=== PATIENT | male | born 1930 | race Caucasian/White ===

== ENCOUNTER 2016-10-07 09:39 | Inpatient (IN) | payer MEDICARE, BC ==
[2016-10-07] MEDS ORDERED: Sodium Chloride 0.9% 10 ML Syringe FLUSH PRN (09:57)
--- NOTE | 2016-10-07 10:03 | EDM.PDOC ---
ED HPI GENERAL MEDICAL PROBLEM - General Chief Complaint: General Stated Complaint: [facility] Time Seen by Provider: 10/07/16 09:47 Source of Information: Reports: Patient, Group Home Records History Limitations: Reports: No Limitations - History of Present Illness INITIAL COMMENTS - FREE TEXT/NARRATIVE: The patient presents from [facility]. This morning he was being helped out of bed and he became weak and they helped him to the floor. He did not fall and he did not hurt anything. They checked his vital signs and his oxygen saturations were very low in the 70s. He was put on a nonrebreather and sent to the ER. He has no fever or chills but he has been coughing. He has been coughing up some whitish sputum. He denies chest pain and he says he does not feel short of breath. He does not use oxygen at the residential. He has no abdominal pain, nausea or vomiting. He has no dysuria. Onset: Today Duration: Hour(s): Severity: Moderate Improves with: Reports: None Worsens with: Reports: Movement Context: Reports: Other (He was getting out of bed when this started) Associated Symptoms: Reports: Cough, cough w sputum. Denies: Confusion, Chest Pain, Fever/Chills, Nausea/Vomiting, Shortness of Breath - Related Data Allergies Allergy/AdvReac Type Severity Reaction Status Date / Time No Known Allergies Allergy Verified 10/07/16 09:52 Home Meds: Home Meds Finasteride [Proscar] 5 mg PO PCLUNCH 05/11/14 [History] Potassium Chloride 20 meq PO BID 05/11/14 [History] Polyethylene Glycol 3350 [MiraLAX] 17 gm PO ASDIRECTED PRN 03/08/15 [History] Sennosides/Docusate Sodium [Senna-Docusate Sodium] 1 each PO BEDTIME 03/08/15 [ History] Sertraline [Zoloft] 50 mg PO DAILY 03/08/15 [History] Cholecalciferol (Vitamin D3) [Vitamin D3] 1,000 units PO PCLUNCH 09/08/15 [ History] Warfarin [Coumadin] 7.5 mg PO SUMOTUWETHSA 09/08/15 [History] atorvaSTATin [Lipitor] 40 mg PO BEDTIME 09/08/15 [History] Acetaminophen [Tylenol] 325 mg PO Q4H PRN 09/13/16 [History] Cyanocobalamin (Vitamin B-12) [B-12] 1,000 mcg PO DAILY 09/13/16 [History] Furosemide [Lasix] 60 mg PO DAILY 09/13/16 [History] Timolol Maleate [Timoptic 0.25% Ophth Soln] 5 ml EYEBOTH DAILY 09/13/16 [History ] Warfarin [Coumadin] 10 mg PO FR 09/13/16 [History] guaiFENesin [Guaifenesin ER] 600 mg PO Q12H PRN 09/13/16 [History] Past Medical History HEENT History: Reports: Glaucoma Other HEENT History: Glasses (at home) Cardiovascular History: Reports: Afib, High Cholesterol, Hypertension Other Genitourinary History: Frequency of urination, dribbling occassionally Other Musculoskeletal History: Right hip Neurological History: Reports: Other (See Below) Other Neuro History: Daughter states advanced dementia. Psychiatric History: Reports: Dementia Endocrine/Metabolic History: Reports: Obesity/BMI 30+ Other Endocrine/Metabolic History: 3 - Infectious Disease History Infectious Disease History: Reports: None - Past Surgical History Cardiovascular Surgical History: Reports: Other (See Below) Musculoskeletal Surgical History: Reports: Hip Replacement Social & Family History - Family History Family Medical History: Noncontributory Cardiac: Reports: [place] Oncologic: Reports: Other (See Below) Other Oncologic Family History: Stomach CA - Tobacco Use Smoking Status *Q: Former Smoker Years of Tobacco use: 20 Packs/Tins Daily: 1 Used Tobacco, but Quit: Yes Month Tobacco Last Used: 15 years Second Hand Smoke Exposure: No - Caffeine Use Caffeine Use: Reports: None - Alcohol Use Days Per Week of Alcohol Use: 0 - Recreational Drug Use Recreational Drug Use: No ED ROS GENERAL - Review of Systems Review Of Systems: See Below Constitutional: Reports: No Symptoms HEENT: Reports: No Symptoms Respiratory: Reports: Cough, Sputum. Denies: Shortness of Breath Cardiovascular: Reports: No Symptoms Endocrine: Reports: No Symptoms GI/Abdominal: Reports: No Symptoms : Reports: No Symptoms Musculoskeletal: Reports: No Symptoms Skin: Reports: No Symptoms ED EXAM, GENERAL - Physical Exam Exam: See Below Exam Limited By: No Limitations General Appearance: Alert, No Apparent Distress Ears: Normal External Exam Nose: Normal Inspection Head: Atraumatic, Normocephalic Neck: Normal Inspection Respiratory/Chest: No Respiratory Distress, Decreased Breath Sounds Cardiovascular: Regular Rate, Rhythm, No Edema, No Murmur GI/Abdominal: Soft, Non-Tender, No Organomegaly, No Mass Back Exam: Normal Inspection Extremities: Normal Inspection Course - Vital Signs Last Recorded V/S: Last Vital Signs Temp 97.6 F 10/07/16 09:45 Pulse 84 10/07/16 09:45 Resp 23 H 10/07/16 09:45 BP 122/59 L 10/07/16 09:45 Pulse Ox 100 10/07/16 09:45 - Orders/Labs/Meds Orders: Active Orders 24 hr Category Date Time Status Cardiac Monitoring [RC] . DIRECTED Care 10/07/16 09:57 Active EKG Documentation Completion [RC] STAT Care 10/07/16 09:58 Active Oxygen Therapy [RC] PRN Care 10/07/16 09:57 Active Peripheral IV Care [RC] . DIRECTED Care 10/07/16 09:58 Active Chest 1V Frontal [CR] Stat Exams 10/07/16 09:58 Taken CBC WITH MANUAL DIFF [HEME] Stat Lab 10/07/16 09:53 Results CULTURE BLOOD [BC] Stat Lab 10/07/16 10:34 Received CULTURE BLOOD [BC] Stat Lab 10/07/16 10:50 Received Hemoccult [OCCULT BLOOD DIAGNOSTIC] [OP] Stat Lab 10/07/16 11:24 Uncollected RED BLOOD CELLS LP [BBK] Stat Lab 10/07/16 10:21 Ordered TYPE AND SCREEN [BBK] Stat Lab 10/07/16 10:21 Ordered Sodium Chloride 0.9% [Normal Saline] 1,000 ml Med 10/07/16 11:15 Active IV ASDIRECTED Sodium Chloride 0.9% [Saline Flush] Med 10/07/16 09:57 Active 10 ml FLUSH ASDIRECTED PRN Blood Culture x2 Reflex Set [OM.PC] Stat Oth 10/07/16 09:58 Ordered Peripheral IV Insertion Adult [OM.PC] Stat Oth 10/07/16 09:57 Ordered Transfuse Red Blood Cells [COMM] Stat Oth 10/07/16 10:21 Ordered Medication Orders Sodium Chloride (Normal Saline) 1,000 mls @ 75 mls/hr IV ASDIRECTED SAM Sodium Chloride (Saline Flush) 10 ml FLUSH ASDIRECTED PRN PRN Reason: Keep Vein Open Labs: Laboratory Tests 10/07/16 10/07/16 10/07/16 Range/Units 09:53 09:53 09:53 WBC 4.89 (4.23-9.07) K/mm3 RBC 1.56 L (4.63-6.08) M/mm3 Hgb 5.1 L* (13.7-17.5) gm/L Hct 16.3 L (40.1-51.0) % MCV 104.5 H (79.0-92.2) fl MCH 32.7 H (25.7-32.2) pg MCHC 31.3 L (32.2-35.5) g/dl RDW Std Deviation 87.6 H (35.1-43.9) fL Plt Count 31 L (163-337) K/mm3 MPV 10.6 (9.4-12.3) fl Neut % (Auto) Cancelled Lymph % (Auto) Cancelled [place] % (Auto) Cancelled Eos % (Auto) Cancelled Baso % (Auto) Cancelled Neut # (Auto) Cancelled Lymph # (Auto) Cancelled [place] # (Auto) Cancelled Eos # (Auto) Cancelled Baso # (Auto) Cancelled Manual Slide Review Cancelled PT 19.6 H (8.0-13.0) SECONDS INR 1.74 Sodium 143 (136-145) mEq/L Potassium 5.0 (3.5-5.1) mEq/L Chloride 109 H (98-107) mEq/L Carbon Dioxide 25 (21-32) mEq/L Anion Gap 14.0 (5-15) BUN 38 H (7-18) mg/dL Creatinine 2.2 H (0.7-1.3) mg/dL Est Cr Clr Drug Dosing 24.43 mL/min Estimated GFR (MDRD) 28 (>60) mL/min BUN/Creatinine Ratio 17.3 (14-18) Glucose 120 H (83-115) mg/dL Calcium 8.7 (8.5-10.1) mg/dL Total Bilirubin 0.9 (0.2-1.0) mg/dL AST 16 (15-37) U/L ALT 17 (16-63) U/L Alkaline Phosphatase 78 (46-116) U/L Troponin I 0.055 (0.00-0.056) ng/mL B-Natriuretic Peptide (0-100) pg/mL Total Protein 7.3 (6.4-8.2) g/dl Albumin 3.1 L (3.4-5.0) g/dl Globulin 4.2 gm/dL Albumin/Globulin Ratio 0.7 L (1-2) 10/07/16 Range/Units 09:53 WBC (4.23-9.07) K/mm3 RBC (4.63-6.08) M/mm3 Hgb (13.7-17.5) gm/L Hct (40.1-51.0) % MCV (79.0-92.2) fl MCH (25.7-32.2) pg MCHC (32.2-35.5) g/dl RDW Std Deviation (35.1-43.9) fL Plt Count (163-337) K/mm3 MPV (9.4-12.3) fl Neut % (Auto) Lymph % (Auto) [place] % (Auto) Eos % (Auto) Baso % (Auto) Neut # (Auto) Lymph # (Auto) [place] # (Auto) Eos # (Auto) Baso # (Auto) Manual Slide Review PT (8.0-13.0) SECONDS INR Sodium (136-145) mEq/L Potassium (3.5-5.1) mEq/L Chloride (98-107) mEq/L Carbon Dioxide (21-32) mEq/L Anion Gap (5-15) BUN (7-18) mg/dL Creatinine (0.7-1.3) mg/dL Est Cr Clr Drug Dosing mL/min Estimated GFR (MDRD) (>60) mL/min BUN/Creatinine Ratio (14-18) Glucose (83-115) mg/dL Calcium (8.5-10.1) mg/dL Total Bilirubin (0.2-1.0) mg/dL AST (15-37) U/L ALT (16-63) U/L Alkaline Phosphatase (46-116) U/L Troponin I (0.00-0.056) ng/mL B-Natriuretic Peptide 278 H (0-100) pg/mL Total Protein (6.4-8.2) g/dl Albumin (3.4-5.0) g/dl Globulin gm/dL Albumin/Globulin Ratio (1-2) Meds: Medications Generic Name Dose Route Start Last Admin Trade Name Freq PRN Reason Stop Dose Admin Sodium Chloride 1,000 mls @ 75 mls/hr 10/07/16 11:15 Normal Saline IV ASDIRECTED SAM Sodium Chloride 10 ml 10/07/16 09:57 Saline Flush FLUSH ASDIRECTED PRN Keep Vein Open - Re-Assessments/Exams Free Text/Narrative Re-Assessment/Exam: 10/07/16 10:03 I have ordered an IV, oxygen, EKG, CXR, labs, and UA. 10/07/16 11:17 His EKG shows A-fib with a RBBB. His CXR shows poor inspiration and mild congestive changes. His WBC was negative. His Hgb was low at 5.1. His platelets were low at 31. His INR was at 1.74. His creatinine was elevated at 2.2. His troponin is negative. His BNP was a little elevated at 278. He has a history of anemia but it has never been this bad. I have ordered 2 units. I feel he needs to be admitted. I called Dr Barton and he agreed to the admission. 10/07/16 11:28 I did a stool guiac on him and it was negative for blood. Departure - Departure Time of Disposition: 11:30 Disposition: Admitted As Inpatient 65 Condition: fair Clinical Impression: Renal insufficiency, Hypoxemia Anemia Qualifiers: Anemia type: unspecified type Qualified Code(s): D64.9 - Anemia, unspecified - Discharge Information Referrals: René Cuba MD [Primary Care Provider] - Forms: ED Department Discharge - My Orders Last 24 Hours: My Active Orders 10/07/16 09:53 CBC WITH MANUAL DIFF [HEME] Stat 10/07/16 09:57 Cardiac Monitoring [RC] . DIRECTED Oxygen Therapy [RC] PRN Sodium Chloride 0.9% [Saline Flush] 10 ml FLUSH ASDIRECTED PRN Peripheral IV Insertion Adult [OM.PC] Stat 10/07/16 09:58 EKG Documentation Completion [RC] STAT Peripheral IV Care [RC] . DIRECTED Chest 1V Frontal [CR] Stat Blood Culture x2 Reflex Set [OM.PC] Stat 10/07/16 10:21 RED BLOOD CELLS LP [BBK] Stat TYPE AND SCREEN [BBK] Stat Transfuse Red Blood Cells [COMM] Stat 10/07/16 10:34 CULTURE BLOOD [BC] Stat 10/07/16 10:50 CULTURE BLOOD [BC] Stat 10/07/16 11:15 Sodium Chloride 0.9% [Normal Saline] 1,000 ml IV ASDIRECTED 10/07/16 11:24 Hemoccult [OCCULT BLOOD DIAGNOSTIC] [OP] Stat - Assessment/Plan Last 24 Hours: My Active Orders 10/07/16 09:53 CBC WITH MANUAL DIFF [HEME] Stat 10/07/16 09:57 Cardiac Monitoring [RC] . DIRECTED Oxygen Therapy [RC] PRN Sodium Chloride 0.9% [Saline Flush] 10 ml FLUSH ASDIRECTED PRN Peripheral IV Insertion Adult [OM.PC] Stat 10/07/16 09:58 EKG Documentation Completion [RC] STAT Peripheral IV Care [RC] . DIRECTED Chest 1V Frontal [CR] Stat Blood Culture x2 Reflex Set [OM.PC] Stat 10/07/16 10:21 RED BLOOD CELLS LP [BBK] Stat TYPE AND SCREEN [BBK] Stat Transfuse Red Blood Cells [COMM] Stat 10/07/16 10:34 CULTURE BLOOD [BC] Stat 10/07/16 10:50 CULTURE BLOOD [BC] Stat 10/07/16 11:15 Sodium Chloride 0.9% [Normal Saline] 1,000 ml IV ASDIRECTED 10/07/16 11:24 Hemoccult [OCCULT BLOOD DIAGNOSTIC] [OP] Stat
[2016-10-07] MEDS ORDERED: Sodium Chloride 0.9% 1,000 ML IV SCH (11:15)
--- NOTE | 2016-10-07 12:44 | PCM.HP ---
H&P History of Present Illness - General Date of Service: 10/07/16 Admit Problem/Dx: Admission Diagnosis/Problem Admission Diagnosis/Problem Anemia Source of Information: Patient, Old Records, Provider, RN Notes Reviewed History Limitations: Reports: Altered Mental Status - History of Present Illness Initial Comments - Free Text/Narative: This is an 86 yo elderly white male with past medical hx/o HTN, HLD, CVA, Hx/o Anemia, Hx/o Pancytopenia, GERD, AVR, Renal Insufficiency/CKD, Dysphagia, Atrial Fibrillation on Warfarin, BPH, Spinal Stenosis, Constipation, OA/DJD, Dry Eyes Syndrome and Depression who comes in from [facility] with complaints of generalized weakness and was found to have low O2 sat in the 70% on RA. No associated abdominal pain, nausea, vomiting or diarrhea. No black tarry or bloody stools. Patient is a poor historian and unable to provide much information. He admits to having cough with sputum but no shortness of breath or chest pain. His initial work up in ED shows a CBC remarkable for RBC of 1.56, Hgb of 5.1, Hct of 16.3, MCV of 104, and Platelet of 31. His INR is 1.74. His chemistry is significant for CL of 109, BUN of 38, Cr of 2.2, BS of 120, BNP of 278, and albumin of 3.1. His CXR shows increased lung markings. Patient was admitted for asymptomatic anemia. He is DNR/DNI. - Related Data Allergies/Adverse Reactions: Allergies Allergy/AdvReac Type Severity Reaction Status Date / Time No Known Allergies Allergy Verified 10/07/16 09:52 Home Medications: Home Meds Finasteride [Proscar] 5 mg PO PCLUNCH 05/11/14 [History] Potassium Chloride 20 meq PO BID 05/11/14 [History] Polyethylene Glycol 3350 [MiraLAX] 17 gm PO ASDIRECTED PRN 03/08/15 [History] Sennosides/Docusate Sodium [Senna-Docusate Sodium] 1 each PO BEDTIME 03/08/15 [ History] Sertraline [Zoloft] 50 mg PO DAILY 03/08/15 [History] Cholecalciferol (Vitamin D3) [Vitamin D3] 1,000 units PO PCLUNCH 09/08/15 [ History] Warfarin [Coumadin] 7.5 mg PO SUTUWETHSA 09/08/15 [History] atorvaSTATin [Lipitor] 40 mg PO BEDTIME 09/08/15 [History] Acetaminophen [Tylenol] 325 mg PO Q4H PRN 09/13/16 [History] Cyanocobalamin (Vitamin B-12) [B-12] 1,000 mcg PO DAILY 09/13/16 [History] Furosemide [Lasix] 60 mg PO DAILY 09/13/16 [History] Timolol Maleate [Timoptic 0.25% Ophth Soln] 5 ml EYEBOTH DAILY 09/13/16 [History ] Warfarin [Coumadin] 10 mg PO MOFR 09/13/16 [History] guaiFENesin [Guaifenesin ER] 600 mg PO Q12H PRN 09/13/16 [History] Past Medical History HEENT History: Reports: Glaucoma Other HEENT History: Glasses (at home) Cardiovascular History: Reports: Afib, High Cholesterol, Hypertension Other Genitourinary History: Frequency of urination, dribbling occassionally Other Musculoskeletal History: Right hip Neurological History: Reports: Other (See Below) Other Neuro History: Daughter states advanced dementia. Psychiatric History: Reports: Dementia Endocrine/Metabolic History: Reports: Obesity/BMI 30+ Other Endocrine/Metabolic History: 3 - Infectious Disease History Infectious Disease History: Reports: None - Past Surgical History Cardiovascular Surgical History: Reports: Other (See Below) Musculoskeletal Surgical History: Reports: Hip Replacement Social & Family History - Family History Family Medical History: Noncontributory Cardiac: Reports: [place] Oncologic: Reports: Other (See Below) Other Oncologic Family History: Stomach CA - Tobacco Use Smoking Status *Q: Former Smoker Years of Tobacco use: 20 Packs/Tins Daily: 1 Used Tobacco, but Quit: Yes Month Tobacco Last Used: 15 years Second Hand Smoke Exposure: No - Caffeine Use Caffeine Use: Reports: None - Alcohol Use Days Per Week of Alcohol Use: 0 - Recreational Drug Use Recreational Drug Use: No H&P Review of Systems - Review of Systems: Review Of Systems: See Below General: Reports: Weakness HEENT: Reports: No Symptoms Pulmonary: Reports: Cough, Sputum. Denies: Shortness of Breath Cardiovascular: Reports: Edema. Denies: Chest Pain, Palpitations, Dyspnea on Exertion Gastrointestinal: Denies: Abdominal Pain, Black Stool, Bloody Stool, Constipation, Diarrhea, Decreased Appetite, Hematemesis, Hematochezia, Mucous in Stool, Nausea, Vomiting Genitourinary: Reports: No Symptoms Musculoskeletal: Reports: No Symptoms Skin: Denies: Cyanosis Psychiatric: Denies: Confusion, Anxiety, Hallucinations, Hallucinations ( Auditory) Neurological: Reports: Difficulty Walking, Weakness, Gait Disturbance Hematologic/Lymphatic: Reports: Anemia, Easy Bleeding, Easy Bruising Immunologic: Reports: No Symptoms Exam - Exam Exam: See Below - Vital Signs Vital Signs: Last Vital Signs Temp 36.4 C 10/07/16 11:59 Pulse 76 10/07/16 12:25 Resp 23 H 10/07/16 12:25 BP 118/72 10/07/16 12:25 Pulse Ox 100 10/07/16 12:25 Weight: 117.934 kg - Exam General: Alert, Cooperative, Other (Obese). No: Mild Distress HEENT: Conjunctiva Clear, EACs Clear, Hearing Intact, Mucosa Moist & [place], Nares Patent, Normal Nasal Septum, Posterior Pharynx Clear, Pupils Equal, Pupils Reactive Neck: Supple, Trachea Midline. No: JVD Lungs: Normal Respiratory Effort, Decreased Breath Sounds Cardiovascular: Regular Rate, Regular Rhythm Abdomen: Normal Bowel Sounds, Soft. No: Organomegaly, Distention, Guarding, Rigidity, Tenderness (Male) Exam: Deferred Rectal (Males) Exam: Deferred Back Exam: Normal Inspection, Decreased Range of Motion Extremities: Normal Inspection, Normal Pulses, Edema Peripheral Pulses: 2+: Dorsalis Pedis (L), Dorsalis Pedis (R) Skin: Warm, Dry, Intact Neuro Extensive - Mental Status: Normal Cognition Neuro Extensive - Motor, Sensory, Reflexes: CN II-XII Intact (limited but fairly intact), Abnormal Gait Psychiatric: Alert, Normal Affect, Normal Mood - Patient Data Result Diagrams: 10/08/16 04:18 10/08/16 04:18 *Q Meaningful Use (ADM) - VTE *Q VTE Criteria *Q: - Stroke *Q Stroke Criteria *Q: - AMI *Q AMI Criteria *Q: Problem List Initiated/Reviewed/Updated: Yes Orders Last 24hrs: Medication Orders Sodium Chloride (Normal Saline) 1,000 mls @ 75 mls/hr IV ASDIRECTED SAM Last Admin: 10/07/16 11:39 Dose: 75 mls/hr Sodium Chloride (Saline Flush) 10 ml FLUSH ASDIRECTED PRN PRN Reason: Keep Vein Open Last Admin: 10/07/16 12:06 Dose: 10 ml Assessment/Plan Comment:: Assessment/Plan: Acute: Anemia - Has hx/o Microcytic Anemia and Pancytopenia (BM Failure/Blood Dyscrasia) - Risk factors: On Warfarin - Hem-occult test test in ED negative - Hold blood thinners - Current transfusing PRBCx x2 - Consulted Dr. Welsh for further eval Subtherapeutic INR - INR 1.74 - No need to give Vit K - Patient is not actively bleeding Pancytopenia/BM Failure - Had seen Dr. Hoyt before - He dit not meet criteria for BM biopsy or even or chemotherapy - He would likely need routine blood transfusion Chronic: HTN HLD Atrial Fibrillation BPH CKD Stage 4 Dementia Obesity Plan: Admit to the floor Routine AM Labs Resume Home Meds except blood thinners PT/OT consult Dr. Welsh consult SW/CM for d/c planning Fall Precautions Code status: DNR/DNI
[2016-10-07] MEDS ORDERED: Acetaminophen 325 MG Tab PO PRN (13:14)
[2016-10-07] MEDS ORDERED: guaiFENesin 600 MG Tab.ER PO PRN (13:14)
[2016-10-07] MEDS ORDERED: Polyethylene Glycol 3350 Powder 17 GM Packet PO PRN (13:14)
[2016-10-07] MEDS ORDERED: hydrALAZINE 20 MG/ML SDV IVPUSH PRN (13:16)
[2016-10-07] MEDS ORDERED: Metoprolol Tartrate 5 MG/5 ML SDV IVPUSH PRN (13:16)
[2016-10-07] MEDS ORDERED: Temazepam 7.5 MG Cap PO PRN (13:17)
[2016-10-07] MEDS ORDERED: Promethazine 12.5 MG in Sodium Chloride 0.9% 50 ML IV PRN (13:17)
[2016-10-07] MEDS ORDERED: Acetaminophen/HYDROcodone 325-5 MG Tab PO PRN (13:17)
[2016-10-07] MEDS ORDERED: Docusate Sodium 100 MG Cap PO PRN (13:17)
[2016-10-07] MEDS ORDERED: Albuterol/Ipratropium 3.0-0.5 MG/3 ML Neb Soln NEB PRN (13:17)
[2016-10-07] MEDS ORDERED: Ondansetron 4 MG/2 ML SDV IV PRN (13:17)
[2016-10-07] MEDS ORDERED: LORazepam 2 MG/ML MDV IV PRN (13:17)
[2016-10-07] MEDS ORDERED: Bumetanide 1 MG/4 ML MDV IVPUSH ONE (13:35)
[2016-10-07] MEDS: Finasteride 5 MG Tab PO SCH (14:13)
[2016-10-07] MEDS: Cholecalciferol (Vitamin D3) 1,000 Unit Tab PO SCH (14:13)
--- NOTE | 2016-10-07 18:02 | CR ---
Chest: Portable view of the chest was obtained. Comparison: Previous chest x-ray of 04/06/16. Heart is enlarged. Tortuous thoracic aorta is seen. Previous sternotomy noted. Increased central lung markings from prior exam. Findings may represent diffuse bronchitis versus pulmonary vascular congestion. No alveolar densities are seen. Bony structures are grossly intact. Impression: 1. Cardiomegaly. 2. Increased central lung markings either due to diffuse bronchitis or pulmonary vascular congestion. Diagnostic code #3
[2016-10-07] MEDS: Bumetanide 1 MG/4 ML MDV IVPUSH SCH (21:33)
[2016-10-07] MEDS: Potassium Chloride 10 MEQ Tab.ER PO SCH (21:35)
[2016-10-07] MEDS: Rosuvastatin 10 MG Tab PO SCH (21:35)
--- NOTE | 2016-10-08 09:00 | PCM.PN ---
- General Info Date of Service: 10/08/16 Admission Dx/Problem (Free Text): Admission Diagnosis/Problem Admission Diagnosis/Problem Anemia Subjective Update: Follow Up Functional Status: Reports: pain controlled, tolerating diet, urinating. Denies : new symptoms - Review of Systems General: Denies: Fever, Fatigue, Chills HEENT: Reports: no symptoms Pulmonary: Denies: shortness of breath Cardiovascular: Denies: Chest Pain, Palpitations, Dyspnea on Exertion Gastrointestinal: Denies: Abdominal pain, Nausea, Vomiting Genitourinary: Reports: no symptoms Musculoskeletal: Reports: no symptoms Skin: Denies: pallor Neurological: Reports: Difficulty Walking, Gait Disturbance. Denies: Dizziness , Weakness Psychiatric: Denies: depression, anxiety, agitation Systems Review Comment:: No overnight or acute issues. No any kind of bleeding reported. His Hgb today is 6.7 and Platelet is 22 from 31. - Patient Data Vitals - most recent: Last Vital Signs Temp 37.2 C 10/08/16 03:41 Pulse 85 10/08/16 03:41 Resp 28 H 10/08/16 03:41 BP 119/78 10/08/16 03:41 Pulse Ox 96 10/08/16 03:41 Weight - most recent: 114.986 kg I&O - last 24 hours: Intake & Output 10/07/16 10/08/16 10/08/16 22:59 06:59 14:59 Intake Total 775 120 Balance 775 120 Lab Results last 24 hrs: Laboratory Results - last 24 hr 10/07/16 10/08/16 10/08/16 Range/Units 21:23 04:18 04:18 WBC 5.04 (4.23-9.07) K/mm3 RBC 2.01 L (4.63-6.08) M/mm3 Hgb 6.7 L* (13.7-17.5) gm/L Hct 20.4 L (40.1-51.0) % MCV 101.5 H (79.0-92.2) fl MCH 33.3 H (25.7-32.2) pg MCHC 32.8 (32.2-35.5) g/dl RDW Std Deviation 73.7 H (35.1-43.9) fL Plt Count 22 L* (163-337) K/mm3 MPV 10.6 (9.4-12.3) fl Neut % (Auto) Cancelled Lymph % (Auto) Cancelled [place] % (Auto) Cancelled Eos % (Auto) Cancelled Baso % (Auto) Cancelled Neut # (Auto) Cancelled Lymph # (Auto) Cancelled [place] # (Auto) Cancelled Eos # (Auto) Cancelled Baso # (Auto) Cancelled Manual Slide Review Cancelled Sodium 143 (136-145) mEq/L Potassium 4.5 (3.5-5.1) mEq/L Chloride 109 H (98-107) mEq/L Carbon Dioxide 26 (21-32) mEq/L Anion Gap 12.5 (5-15) BUN 36 H (7-18) mg/dL Creatinine 2.0 H (0.7-1.3) mg/dL Est Cr Clr Drug Dosing 26.87 mL/min Estimated GFR (MDRD) 32 (>60) mL/min BUN/Creatinine Ratio 18.0 (14-18) Glucose 102 (83-115) mg/dL Calcium 8.3 L (8.5-10.1) mg/dL Magnesium 2.1 (1.8-2.4) mg/dl MRSA (PCR) Negative Med Orders - Current: Current Medications Acetaminophen (Tylenol) 325 mg PO Q4H PRN PRN Reason: Pain Hydrocodone Bitart/Acetaminophen ([place] 325-5 Mg) 1 tab PO Q4H PRN PRN Reason: Pain (moderate 4-6) Albuterol/Ipratropium (Duoneb 3.0-0.5 Mg/3 Ml) 3 ml NEB Q4H PRN PRN Reason: Shortness Of Breath/wheezing Bumetanide (Bumex) 0.5 mg IVPUSH BID [facility] Last Admin: 10/07/16 21:33 Dose: 0.5 mg Cholecalciferol (Vitamin D3) 1,000 units PO PCLUNCH [facility] Last Admin: 10/07/16 14:13 Dose: 1,000 units Cyanocobalamin (Vitamin B12) 1,000 mcg PO DAILY [facility] Docusate Sodium (Colace) 100 mg PO BID PRN PRN Reason: Constipation Finasteride (Proscar) 5 mg PO PCLUNCH [facility] Last Admin: 10/07/16 14:13 Dose: 5 mg Guaifenesin (Mucinex) 600 mg PO Q12H PRN PRN Reason: Cough Hydralazine HCl (Apresoline) 20 mg IVPUSH Q4H PRN PRN Reason: Hypertension Promethazine HCl 12.5 mg/ (Sodium Chloride) 50.5 mls @ 100 mls/hr IV Q6H PRN PRN Reason: Nausea/Vomiting Lorazepam (Ativan) 0.25 mg IV Q6H PRN PRN Reason: Anxiety Magnesium Sulfate (Pharmacy To Dose - Magnesium Replacement) 0 dose .XX ASDIRECTED PRN PRN Reason: RX to Dose Metoprolol Tartrate (Lopressor) 5 mg IVPUSH Q4H PRN PRN Reason: Tachycardia Ondansetron HCl (Zofran) 4 mg IV Q6H PRN PRN Reason: Nausea/Vomiting Polyethylene Glycol (Miralax) 17 gm PO DAILY PRN PRN Reason: Constipation Last Admin: 10/07/16 17:58 Dose: 17 gm Potassium Chloride (Klor-Con 10) 20 meq PO BID [facility] Last Admin: 10/07/16 21:35 Dose: 20 meq Potassium Chloride (Pharmacy To Dose - Potassium Replacement) 0 dose .XX ASDIRECTED PRN PRN Reason: RX to Dose Rosuvastatin Calcium (Crestor) 10 mg PO BEDTIME [facility] Last Admin: 10/07/16 21:35 Dose: 10 mg Senna/Docusate Sodium (Senna Plus) 1 tab PO BEDTIME [facility] Last Admin: 10/07/16 21:35 Dose: 1 tab Sertraline HCl (Zoloft) 50 mg PO DAILY [facility] Sodium Chloride (Saline Flush) 10 ml FLUSH ASDIRECTED PRN PRN Reason: Keep Vein Open Last Admin: 10/07/16 12:06 Dose: 10 ml Temazepam (Restoril) 7.5 mg PO BEDTIME PRN PRN Reason: Sleep Timolol Maleate (Timoptic 0.25% Ophth Soln) 0 ml EYEBOTH DAILY [facility] Discontinued Medications Bumetanide (Bumex) 0.5 mg IVPUSH ONETIME ONE Stop: 10/07/16 13:36 Last Admin: 10/07/16 14:13 Dose: 0.5 mg Sodium Chloride (Normal Saline) 1,000 mls @ 75 mls/hr IV ASDIRECTED [facility] Last Admin: 10/07/16 11:39 Dose: 75 mls/hr - Exam General: alert, cooperative, no acute distress, other (Obese) HEENT: Pupils equal, Pupils reactive, EOMI, Mucous membr. moist/pink Neck: supple, trachea midline, no JVD Lungs: Normal respiratory effort, Decreased breath sounds Cardiovascular: Irregular Rhythm Abdomen: bowel sounds present, soft, no tenderness, no distension, other (Obese) (Male) Exam: Deferred Back Exam: Normal Inspection, Decreased Range of Motion Extremities: normal pulses, no cyanosis, no calf tenderness, edema Peripheral Pulses: 2+: Dorsalis Pedis (L), Dorsalis Pedis (R) Skin: warm, dry, intact Neurological: no new focal deficit Psy/Mental Status: alert, normal affect, normal mood - Problem List Review Problem List Initiated/Reviewed/Updated: Yes - My Orders Last 24 Hours: My Active Orders 10/07/16 13:05 Admission Status [Patient Status] [ADT] Routine 10/07/16 13:14 Acetaminophen [Tylenol] 325 mg PO Q4H PRN Polyethylene Glycol 3350 [MiraLAX] 17 gm PO DAILY PRN guaiFENesin [Mucinex] 600 mg PO Q12H PRN 10/07/16 13:16 Metoprolol Tartrate [Lopressor] 5 mg IVPUSH Q4H PRN hydrALAZINE [Apresoline] 20 mg IVPUSH Q4H PRN 10/07/16 13:17 Ambulate [RC] ASDIRECTED Intake and Output [RC] 04,16 Up ad Eliane [RC] ASDIRECTED VTE/DVT Education [RC] PER UNIT ROUTINE Vital Signs [RC] Q4HR Acetaminophen/HYDROcodone [Gary 325-5 MG] 1 tab PO Q4H PRN Albuterol/Ipratropium [DuoNeb 3.0-0.5 MG/3 ML] 3 ml NEB Q4H PRN Docusate Sodium [Colace] 100 mg PO BID PRN LORazepam [Ativan] 0.25 mg IV Q6H PRN Ondansetron [Zofran] 4 mg IV Q6H PRN Promethazine [Phenergan] 12.5 mg Sodium Chloride 0.9% [Normal Saline] 50 ml IV Q6H Temazepam [Restoril] 7.5 mg PO BEDTIME PRN Resuscitation Status Routine 10/07/16 13:21 RT Aerosol Therapy [RC] ASDIRECTED 10/07/16 13:28 Consult to Case Management [CONS] Routine Consult to Physician [CONS] Routine Consult to Fitness Worker [CONS] Routine OT Evaluation and Treatment [CONS] Routine PT Evaluation and Treatment [CONS] Routine 10/07/16 13:29 Notify Provider Consults [RC] ASDIRECTED 10/07/16 13:30 Magnesium Rep Pharmacy to Dose [Pharmacy to Dose - Magnesium Replacement] 0 dose .XX ASDIRECTED PRN Potassium Rep Pharmacy to Dose [Pharmacy to Dose - Potassium Replacement] 0 dose .XX ASDIRECTED PRN 10/07/16 13:36 Incentive Spirometry [RT Incentive Spirometry] [RC] ASDIRECTED 10/07/16 14:00 Cholecalciferol (Vitamin D3) [Vitamin D3] 1,000 units PO PCLUNCH Finasteride [Proscar] 5 mg PO PCLUNCH 10/07/16 21:00 Bumetanide [Bumex] 0.5 mg IVPUSH BID [facility] Sodium/Sennosides [Senna Plus] 1 tab PO BEDTIME Potassium Chloride [Klor-Con 10] 20 meq PO BID Rosuvastatin [Crestor] 10 mg PO BEDTIME 10/07/16 Dinner Heart Healthy Diet [DIET] 10/08/16 04:18 CBC WITH MANUAL DIFF [HEME] Routine 10/08/16 06:57 TYPE AND SCREEN [BBK] Urgent Transfuse RBC [Transfuse Red Blood Cells] [COMM] Urgent 10/08/16 08:12 Antiembolic Devices [RC] PER UNIT ROUTINE SCD [Sequential Compression Device] [OM.PC] Routine 10/08/16 09:00 Cyanocobalamin (Vitamin B12) [Vitamin B12] 1,000 mcg PO DAILY Sertraline [Zoloft] 50 mg PO DAILY Timolol Maleate [Timoptic 0.25% Ophth Soln] 0 ml EYEBOTH DAILY 10/08/16 10:00 Chest 1V Frontal [CR] Routine 10/09/16 05:11 BASIC METABOLIC PANEL,BMP [CHEM] AM CBC WITH AUTO DIFF [HEME] AM MAGNESIUM [CHEM] AM 10/10/16 05:11 BASIC METABOLIC PANEL,BMP [CHEM] AM CBC WITH AUTO DIFF [HEME] AM MAGNESIUM [CHEM] AM 10/11/16 05:11 BASIC METABOLIC PANEL,BMP [CHEM] AM CBC WITH AUTO DIFF [HEME] AM MAGNESIUM [CHEM] AM 10/12/16 05:11 BASIC METABOLIC PANEL,BMP [CHEM] AM CBC WITH AUTO DIFF [HEME] AM MAGNESIUM [CHEM] AM - Plan Plan:: Assessment/Plan: Acute: Anemia - Likely from BM Failure/Blood Dyscrasia - Had a hx/o Pancytopenia - Hem-occult test test in ED negative - S/p 2 units of PRBC transfusions - Hgb is 6.7 this am - Consulted Dr. Welsh for further eval Subtherapeutic INR - INR 1.74 - No need to give Vit K - Patient is not actively bleeding Pancytopenia/BM Failure - Had seen Dr. Hoyt before - He did not meet criteria for BM biopsy or even or chemotherapy per family member - He would likely need routine blood transfusion Thrombocytopenia - Platelet now is 22 from 31K - No active bleed and he is not on chemotherapy - Does not meet criteria for transfusion Chronic: HTN HLD Atrial Fibrillation BPH CKD Stage 4 Dementia Obesity Plan: He is otherwise stable Continue current treatment Routine AM Labs Continue PT/OT Will resume warfarin, it has no affect on platelet Absolutely no ASA or Plavix Type and Cross 3 more units for transfusion Awaiting input from Dr. Welsh SW/CM for d/c planning Fall Precautions Refer to Dr. Hoyt on discharge for follow on his BMF/Blood Dyscrasia Code status: DNR/DNI
[2016-10-08] MEDS: Bumetanide 1 MG/4 ML MDV IVPUSH SCH ×2 (09:23→23:14)
[2016-10-08] MEDS: Cyanocobalamin (Vitamin B12) 1,000 MCG Tab PO SCH (09:24)
[2016-10-08] MEDS: Sertraline 50 MG Tab PO SCH (09:24)
[2016-10-08] MEDS: Timolol Maleate 0.25% Ophth Soln 5 ML Bottle EYEBOTH SCH (09:24)
[2016-10-08] MEDS: Potassium Chloride 10 MEQ Tab.ER PO SCH ×2 (09:24→21:09)
[2016-10-08] MEDS ORDERED: Sodium Chloride 0.9% 500 ML ONE (10:14)
--- NOTE | 2016-10-08 11:01 | CR ---
Chest: Portable view of the chest was obtained. Comparison: Previous chest x-ray of 10/07/16. Heart size is mildly enlarged. Previous sternotomy is noted. Increased central lung markings are seen which remain stable. No new pulmonary densities are seen from most recent study. Bony structures are osteopenic. Impression: 1. Unchanged appearance of the chest from prior chest x-ray performed one day earlier. Diagnostic code #3
--- NOTE | 2016-10-08 12:10 | PCM.CONSN ---
- General Info Date of Service: 10/08/16 - Patient Data Vitals - most recent: Last Vital Signs Temp 98.3 F 10/08/16 11:07 Pulse 85 10/08/16 11:07 Resp 24 H 10/08/16 11:07 BP 110/56 L 10/08/16 11:07 Pulse Ox 100 10/08/16 09:38 Weight - most recent: 114.986 kg I&O - last 24 hours: Intake & Output 10/07/16 10/08/16 10/08/16 23:59 07:59 15:59 Intake Total 775 120 145 Balance 775 120 145 Lab Results last 24 hrs: Laboratory Results - last 24 hr 10/07/16 10/08/16 10/08/16 Range/Units 21:23 04:18 04:18 WBC 5.04 (4.23-9.07) K/mm3 RBC 2.01 L (4.63-6.08) M/mm3 Hgb 6.7 L* (13.7-17.5) gm/L Hct 20.4 L (40.1-51.0) % MCV 101.5 H (79.0-92.2) fl MCH 33.3 H (25.7-32.2) pg MCHC 32.8 (32.2-35.5) g/dl RDW Std Deviation 73.7 H (35.1-43.9) fL Plt Count 22 L* (163-337) K/mm3 MPV 10.6 (9.4-12.3) fl Neut % (Auto) Cancelled Lymph % (Auto) Cancelled [place] % (Auto) Cancelled Eos % (Auto) Cancelled Baso % (Auto) Cancelled Neut # (Auto) Cancelled Lymph # (Auto) Cancelled [place] # (Auto) Cancelled Eos # (Auto) Cancelled Baso # (Auto) Cancelled Manual Slide Review Cancelled Sodium 143 (136-145) mEq/L Potassium 4.5 (3.5-5.1) mEq/L Chloride 109 H (98-107) mEq/L Carbon Dioxide 26 (21-32) mEq/L Anion Gap 12.5 (5-15) BUN 36 H (7-18) mg/dL Creatinine 2.0 H (0.7-1.3) mg/dL Est Cr Clr Drug Dosing 26.87 mL/min Estimated GFR (MDRD) 32 (>60) mL/min BUN/Creatinine Ratio 18.0 (14-18) Glucose 102 (83-115) mg/dL Calcium 8.3 L (8.5-10.1) mg/dL Magnesium 2.1 (1.8-2.4) mg/dl MRSA (PCR) Negative Crossmatch 10/08/16 Range/Units 04:21 WBC (4.23-9.07) K/mm3 RBC (4.63-6.08) M/mm3 Hgb (13.7-17.5) gm/L Hct (40.1-51.0) % MCV (79.0-92.2) fl MCH (25.7-32.2) pg MCHC (32.2-35.5) g/dl RDW Std Deviation (35.1-43.9) fL Plt Count (163-337) K/mm3 MPV (9.4-12.3) fl Neut % (Auto) Lymph % (Auto) [place] % (Auto) Eos % (Auto) Baso % (Auto) Neut # (Auto) Lymph # (Auto) [place] # (Auto) Eos # (Auto) Baso # (Auto) Manual Slide Review Sodium (136-145) mEq/L Potassium (3.5-5.1) mEq/L Chloride (98-107) mEq/L Carbon Dioxide (21-32) mEq/L Anion Gap (5-15) BUN (7-18) mg/dL Creatinine (0.7-1.3) mg/dL Est Cr Clr Drug Dosing mL/min Estimated GFR (MDRD) (>60) mL/min BUN/Creatinine Ratio (14-18) Glucose (83-115) mg/dL Calcium (8.5-10.1) mg/dL Magnesium (1.8-2.4) mg/dl MRSA (PCR) Crossmatch See Detail Med Orders - Current: Current Medications Acetaminophen (Tylenol) 325 mg PO Q4H PRN PRN Reason: Pain Hydrocodone Bitart/Acetaminophen ([place] 325-5 Mg) 1 tab PO Q4H PRN PRN Reason: Pain (moderate 4-6) Albuterol/Ipratropium (Duoneb 3.0-0.5 Mg/3 Ml) 3 ml NEB Q4H PRN PRN Reason: Shortness Of Breath/wheezing Bumetanide (Bumex) 0.5 mg IVPUSH BID [facility] Last Admin: 10/08/16 09:23 Dose: 0.5 mg Cholecalciferol (Vitamin D3) 1,000 units PO PCLUNCH [facility] Last Admin: 10/07/16 14:13 Dose: 1,000 units Cyanocobalamin (Vitamin B12) 1,000 mcg PO DAILY [facility] Last Admin: 10/08/16 09:24 Dose: 1,000 mcg Docusate Sodium (Colace) 100 mg PO BID PRN PRN Reason: Constipation Last Admin: 10/08/16 09:24 Dose: 100 mg Finasteride (Proscar) 5 mg PO PCLUNCH [facility] Last Admin: 10/07/16 14:13 Dose: 5 mg Guaifenesin (Mucinex) 600 mg PO Q12H PRN PRN Reason: Cough Last Admin: 10/08/16 09:24 Dose: 600 mg Hydralazine HCl (Apresoline) 20 mg IVPUSH Q4H PRN PRN Reason: Hypertension Promethazine HCl 12.5 mg/ (Sodium Chloride) 50.5 mls @ 100 mls/hr IV Q6H PRN PRN Reason: Nausea/Vomiting Lorazepam (Ativan) 0.25 mg IV Q6H PRN PRN Reason: Anxiety Magnesium Sulfate (Pharmacy To Dose - Magnesium Replacement) 0 dose .XX ASDIRECTED PRN PRN Reason: RX to Dose Metoprolol Tartrate (Lopressor) 5 mg IVPUSH Q4H PRN PRN Reason: Tachycardia Ondansetron HCl (Zofran) 4 mg IV Q6H PRN PRN Reason: Nausea/Vomiting Polyethylene Glycol (Miralax) 17 gm PO DAILY PRN PRN Reason: Constipation Last Admin: 10/07/16 17:58 Dose: 17 gm Potassium Chloride (Klor-Con 10) 20 meq PO BID [facility] Last Admin: 10/08/16 09:24 Dose: 20 meq Potassium Chloride (Pharmacy To Dose - Potassium Replacement) 0 dose .XX ASDIRECTED PRN PRN Reason: RX to Dose Rosuvastatin Calcium (Crestor) 10 mg PO BEDTIME [facility] Last Admin: 10/07/16 21:35 Dose: 10 mg Senna/Docusate Sodium (Senna Plus) 1 tab PO BEDTIME [facility] Last Admin: 10/07/16 21:35 Dose: 1 tab Sertraline HCl (Zoloft) 50 mg PO DAILY [facility] Last Admin: 10/08/16 09:24 Dose: 50 mg Sodium Chloride (Saline Flush) 10 ml FLUSH ASDIRECTED PRN PRN Reason: Keep Vein Open Last Admin: 10/07/16 12:06 Dose: 10 ml Temazepam (Restoril) 7.5 mg PO BEDTIME PRN PRN Reason: Sleep Timolol Maleate (Timoptic 0.25% Ophth Soln) 0 ml EYEBOTH DAILY [facility] Last Admin: 10/08/16 09:24 Dose: Not Given Discontinued Medications Bumetanide (Bumex) 0.5 mg IVPUSH ONETIME ONE Stop: 10/07/16 13:36 Last Admin: 10/07/16 14:13 Dose: 0.5 mg Sodium Chloride (Normal Saline) 1,000 mls @ 75 mls/hr IV ASDIRECTED [facility] Last Admin: 10/07/16 11:39 Dose: 75 mls/hr Sodium Chloride (Normal Saline) Confirm Administered Dose 500 mls @ as directed .ROUTE .STK-MED ONE Stop: 10/08/16 10:15 Last Admin: 10/08/16 10:58 Dose: 500 ml Consult PN Assessment/Plan Procedures: Procedures ASSAY OF BLOOD/URIC ACID (04/09/15) ASSAY OF CK (CPK) (08/18/14) ASSAY OF IRON (04/07/16) ASSAY OF LIPASE (03/08/15) ASSAY OF MAGNESIUM (08/18/14) ASSAY OF NATRIURETIC PEPTIDE (03/08/15) ASSAY OF PARATHORMONE (04/09/15) ASSAY OF TRANSFERRIN (04/07/16) ASSAY OF TROPONIN QUANT (04/07/16) AUTOMATED RETICULOCYTE COUNT (05/16/16) BILIRUBIN DIRECT (03/08/15) BLOOD CULTURE FOR BACTERIA (08/18/14) BLOOD TRANSFUSION SERVICE (09/13/16) BLOOD TYPING SEROLOGIC ABO (09/13/16) BLOOD TYPING SEROLOGIC RH(D) (09/13/16) C-REACTIVE PROTEIN (03/08/15) CATARACT SURG W/IOL 1 STAGE (09/09/15) CHEST X-RAY 1 VIEW FRONTAL (04/07/16) COMPATIBILITY TEST ANTIGLOB (09/13/16) COMPLETE CBC W/AUTO DIFF WBC (09/15/16) COMPREHEN METABOLIC PANEL (09/15/16) CREATINE MB FRACTION (03/08/15) CT ABD & PELVIS W/O CONTRAST (03/08/15) CT HEAD/BRAIN W/O DYE (04/07/16) ELECTROCARDIOGRAM TRACING (04/07/16) EMERGENCY DEPT VISIT (04/07/16) EVALUATE PT USE OF INHALER (08/18/14) EXTRACRANIAL BILAT STUDY (04/07/16) GAIT TRAINING THERAPY (04/07/16) HYDRATE IV INFUSION ADD-ON (03/08/15) HYDRATION IV INFUSION INIT (05/11/14) LIPID PANEL (04/07/16) MEASURE BLOOD OXYGEN LEVEL (08/18/14) METABOLIC PANEL TOTAL CA (04/07/16) MRI ABDOMEN W/O DYE (08/18/14) MRI BRAIN STEM W/O DYE (04/07/16) NEUROMUSCULAR REEDUCATION (08/18/14) OT EVALUATION (04/07/16) PROTEIN E-PHORESIS SERUM (04/09/15) PROTHROMBIN TIME (04/07/16) PT EVALUATION (04/07/16) RBC ANTIBODY SCREEN (09/13/16) RENAL FUNCTION PANEL (04/09/15) ROUTINE VENIPUNCTURE (09/13/16) SELF CARE MNGMENT TRAINING (05/11/14) THER/PROPH/DIAG INJ IV PUSH (09/13/16) THER/PROPH/DIAG IV INF ADDON (03/08/15) THER/PROPH/DIAG IV INF INIT (03/08/15) THERAPEUTIC ACTIVITIES (04/07/16) THERAPEUTIC EXERCISES (04/07/16) THROMBOPLASTIN TIME PARTIAL (04/07/16) TTE W/DOPPLER COMPLETE (08/18/14) URINALYSIS AUTO W/SCOPE (04/07/16) URINE BACTERIA CULTURE (08/18/14) URINE CULTURE/COLONY COUNT (03/08/15) US EXAM ABDOM COMPLETE (03/08/15) VITAMIN D 25 HYDROXY (04/09/15) X-RAY EXAM OF ABDOMEN (03/08/15) Problem List Initiated/Reviewed/Updated: Yes My Orders last 24 hours: My Active Orders 05/21/17 12:02 PSA DIAGNOSTIC [CHEM] Routine Plan: surgical consult dictated MARAL
[2016-10-08] MEDS: Cholecalciferol (Vitamin D3) 1,000 Unit Tab PO SCH (14:38)
[2016-10-08] MEDS: Finasteride 5 MG Tab PO SCH (14:38)
[2016-10-08] MEDS ORDERED: Warfarin 2.5 MG Tab PO SCH (20:30)
[2016-10-08] MEDS: Rosuvastatin 10 MG Tab PO SCH (21:09)
--- NOTE | 2016-10-09 08:46 | CONS ---
CONSULTING PHYSICIAN: Ho Welsh MD DATE OF CONSULTATION: 10/08/2016 HISTORY OF PRESENT ILLNESS: This is 86-year-old, who was at [facility] was having progressive weakness and difficulty getting out of bed. Vital signs showed oxygen were low in the 70s. He was put on a non-rebreather and he was sent to the emergency room where the workup showed a hemoglobin of 5.5. He was admitted to the hospital and given 2 units transfusion yesterday and another 2 today. The patient denies any episode of GI bleeding either hematemesis or hematochezia. He has not had any black stools, but he is on Coumadin but his INR is subtherapeutic of 1.7. The patient has atrial fibrillation. His GI workup in the past is unknown and he is noted to have a coag-negatived stool. The patient's further testing has shown that he has a platelet count of about 22 with RBCs low at 1.5. His smear is pending. The patient showed congestive heart failure. PAST MEDICAL HISTORY: Glaucoma, elevated cholesterol, hypertension, atrial fibrillation, BPH with frequent urinations, dementia, and obesity. SOCIAL HISTORY: Not known. He lives in a fci. No smoking. No drinking. REVIEW OF SYSTEMS: Unable to give an accurate review of systems because of his dementia. PHYSICAL EXAMINATION: GENERAL: Reveals temperature 97, pulse 84, respirations 23, and blood pressure 122/59. HEENT: Eyes sclerae white. Extraocular muscle motion normal. Oral cavity healthy. NECK: Supple. No nodes. No thyromegaly. LUNGS: Clear. HEART: Heart tones are regular rate. ABDOMEN: Soft. No tenderness, guarding, or rebound. EXTREMITIES: Lower extremities, moves all 4 lower extremities. No edema. Upper extremity he moves. No sensorineural deficit. Does have weakness in his legs and difficulty walking. He uses an apparatus to walk. Head and neck exam unremarkable. SKIN: Warm. ASSESSMENT: Low platelets and anemia, probably secondary to blood dyscrasia. PLAN: We will await further studies before recommendation of GI workup. MMODAL /[id number]
[2016-10-09] MEDS: Cyanocobalamin (Vitamin B12) 1,000 MCG Tab PO SCH (09:24)
[2016-10-09] MEDS: Potassium Chloride 10 MEQ Tab.ER PO SCH (09:25)
[2016-10-09] MEDS: Sertraline 50 MG Tab PO SCH (09:25)
[2016-10-09] MEDS: Bumetanide 1 MG/4 ML MDV IVPUSH SCH ×2 (09:26→21:49)
[2016-10-09] MEDS: Timolol Maleate 0.25% Ophth Soln 5 ML Bottle EYEBOTH SCH ×2 (09:26→11:29)
--- NOTE | 2016-10-09 10:38 | PCM.PN ---
- General Info Date of Service: 10/09/16 Admission Dx/Problem (Free Text): Admission Diagnosis/Problem Admission Diagnosis/Problem Anemia Subjective Update: Follow Up Functional Status: Reports: pain controlled, tolerating diet, urinating. Denies : new symptoms - Review of Systems General: Denies: Fever, Weakness, Fatigue, Malaise, Chills HEENT: Reports: no symptoms Pulmonary: Denies: shortness of breath Cardiovascular: Reports: Edema. Denies: Chest Pain Gastrointestinal: Denies: Abdominal pain, Nausea, Vomiting Genitourinary: Reports: no symptoms Musculoskeletal: Reports: no symptoms Skin: Reports: no symptoms. Denies: cyanosis, rash Neurological: Reports: Difficulty Walking, Gait Disturbance Psychiatric: Denies: depression, anxiety, agitation, cravings Systems Review Comment:: No overnight or acute issues. He doing relatively well. He has no new complaints. Hgb is stable at 9.7. Platelet is at 22 but no reports of any kind of bleeding. - Patient Data Vitals - most recent: Last Vital Signs Temp 37.4 C 10/09/16 08:51 Pulse 84 10/09/16 08:51 Resp 18 10/09/16 08:51 BP 122/40 L 10/09/16 08:51 Pulse Ox 84 L 10/09/16 09:50 Weight - most recent: 116.437 kg I&O - last 24 hours: Intake & Output 10/08/16 10/09/16 10/09/16 22:59 06:59 14:59 Intake Total 1115 695 Balance 1115 695 Lab Results last 24 hrs: Laboratory Results - last 24 hr 10/08/16 10/08/16 10/08/16 Range/Units 04:18 04:18 04:21 WBC 5.04 (4.23-9.07) K/mm3 RBC 2.01 L (4.63-6.08) M/mm3 Hgb 6.7 L* (13.7-17.5) gm/L Hct 20.4 L (40.1-51.0) % MCV 101.5 H (79.0-92.2) fl MCH 33.3 H (25.7-32.2) pg MCHC 32.8 (32.2-35.5) g/dl RDW Std Deviation 73.7 H (35.1-43.9) fL Plt Count 22 L* (163-337) K/mm3 MPV 10.6 (9.4-12.3) fl Neut % (Auto) (34.0-67.9) % Lymph % (Auto) (21.8-53.1) % [place] % (Auto) (5.3-12.2) % Eos % (Auto) (0.8-7.0) Baso % (Auto) (0.1-1.2) % Neut # (Auto) (1.78-5.38) K/mm3 Lymph # (Auto) (1.32-3.57) K/mm3 [place] # (Auto) (0.30-0.82) K/mm3 Eos # (Auto) (0.04-0.54) K/mm3 Baso # (Auto) (0.01-0.08) K/mm3 Neutrophils % (Manual) 5 L (40-60) % Band Neutrophils % 0 (0-10) % Lymphocytes % (Manual) 46 H (20-40) % Monocytes % (Manual) 0 L (2-10) % Eosinophils % (Manual) 0 L (0.8-7.0) % Basophils % (Manual) 0 L (0.2-1.2) Metamyelocytes % 1 Blast Cells % 15 Nucleated RBCs 1.0 % Differential Comment See note Manual Slide Review Platelet Estimate See note Polychromasia 1+ slight Poikilocytosis 1+ slight Anisocytosis 1+ slight RBC Morph Comment Not Reportable PT (8.0-13.0) SECONDS INR Sodium (136-145) mEq/L Potassium (3.5-5.1) mEq/L Chloride (98-107) mEq/L Carbon Dioxide (21-32) mEq/L Anion Gap (5-15) BUN (7-18) mg/dL Creatinine (0.7-1.3) mg/dL Est Cr Clr Drug Dosing mL/min Estimated GFR (MDRD) (>60) mL/min BUN/Creatinine Ratio (14-18) Glucose (83-115) mg/dL Calcium (8.5-10.1) mg/dL Magnesium (1.8-2.4) mg/dl Prostate Specific Ag 0.9 (0.1-4.0) ng/mL Crossmatch See Detail 0510/09/16 10/09/16 Range/Units 04:35 04:35 07:51 WBC 6.14 (4.23-9.07) K/mm3 RBC 3.06 L (4.63-6.08) M/mm3 Hgb 9.7 L (13.7-17.5) gm/L Hct 29.5 L (40.1-51.0) % MCV 96.4 H (79.0-92.2) fl MCH 31.7 (25.7-32.2) pg MCHC 32.9 (32.2-35.5) g/dl RDW Std Deviation 61.2 H (35.1-43.9) fL Plt Count 22 L* (163-337) K/mm3 MPV 10.9 (9.4-12.3) fl Neut % (Auto) 1.3 L (34.0-67.9) % Lymph % (Auto) 29.6 (21.8-53.1) % [place] % (Auto) 65.5 H (5.3-12.2) % Eos % (Auto) 0 L (0.8-7.0) Baso % (Auto) 0.0 L (0.1-1.2) % Neut # (Auto) 0.08 L (1.78-5.38) K/mm3 Lymph # (Auto) 1.82 (1.32-3.57) K/mm3 [place] # (Auto) 4.02 H (0.30-0.82) K/mm3 Eos # (Auto) 0.00 L (0.04-0.54) K/mm3 Baso # (Auto) 0.00 L (0.01-0.08) K/mm3 Neutrophils % (Manual) (40-60) % Band Neutrophils % (0-10) % Lymphocytes % (Manual) (20-40) % Monocytes % (Manual) (2-10) % Eosinophils % (Manual) (0.8-7.0) % Basophils % (Manual) (0.2-1.2) Metamyelocytes % Blast Cells % Nucleated RBCs % Differential Comment Manual Slide Review Abnormal smear Platelet Estimate Polychromasia Poikilocytosis Anisocytosis RBC Morph Comment PT 17.8 H (8.0-13.0) SECONDS INR 1.59 Sodium 145 (136-145) mEq/L Potassium 4.2 (3.5-5.1) mEq/L Chloride 110 H (98-107) mEq/L Carbon Dioxide 27 (21-32) mEq/L Anion Gap 12.2 (5-15) BUN 36 H (7-18) mg/dL Creatinine 1.8 H (0.7-1.3) mg/dL Est Cr Clr Drug Dosing 29.85 mL/min Estimated GFR (MDRD) 36 (>60) mL/min BUN/Creatinine Ratio 20.0 H (14-18) Glucose 110 (83-115) mg/dL Calcium 8.4 L (8.5-10.1) mg/dL Magnesium 2.1 (1.8-2.4) mg/dl Prostate Specific Ag (0.1-4.0) ng/mL Crossmatch Med Orders - Current: Current Medications Acetaminophen (Tylenol) 325 mg PO Q4H PRN PRN Reason: Pain Hydrocodone Bitart/Acetaminophen ([place] 325-5 Mg) 1 tab PO Q4H PRN PRN Reason: Pain (moderate 4-6) Albuterol/Ipratropium (Duoneb 3.0-0.5 Mg/3 Ml) 3 ml NEB Q4H PRN PRN Reason: Shortness Of Breath/wheezing Bumetanide (Bumex) 0.5 mg IVPUSH BID [facility] Last Admin: 10/09/16 09:26 Dose: 0.5 mg Cholecalciferol (Vitamin D3) 1,000 units PO PCLUNCH [facility] Last Admin: 10/08/16 14:38 Dose: 1,000 units Cyanocobalamin (Vitamin B12) 1,000 mcg PO DAILY [facility] Last Admin: 10/09/16 09:24 Dose: 1,000 mcg Docusate Sodium (Colace) 100 mg PO BID PRN PRN Reason: Constipation Last Admin: 10/08/16 09:24 Dose: 100 mg Finasteride (Proscar) 5 mg PO PCLUNCH [facility] Last Admin: 10/08/16 14:38 Dose: 5 mg Guaifenesin (Mucinex) 600 mg PO Q12H PRN PRN Reason: Cough Last Admin: 10/08/16 09:24 Dose: 600 mg Hydralazine HCl (Apresoline) 20 mg IVPUSH Q4H PRN PRN Reason: Hypertension Promethazine HCl 12.5 mg/ (Sodium Chloride) 50.5 mls @ 100 mls/hr IV Q6H PRN PRN Reason: Nausea/Vomiting Lorazepam (Ativan) 0.25 mg IV Q6H PRN PRN Reason: Anxiety Magnesium Sulfate (Pharmacy To Dose - Magnesium Replacement) 0 dose .XX ASDIRECTED PRN PRN Reason: RX to Dose Metoprolol Tartrate (Lopressor) 5 mg IVPUSH Q4H PRN PRN Reason: Tachycardia Ondansetron HCl (Zofran) 4 mg IV Q6H PRN PRN Reason: Nausea/Vomiting Polyethylene Glycol (Miralax) 17 gm PO DAILY PRN PRN Reason: Constipation Last Admin: 10/07/16 17:58 Dose: 17 gm Potassium Chloride (Pharmacy To Dose - Potassium Replacement) 0 dose .XX ASDIRECTED PRN PRN Reason: RX to Dose Potassium Chloride (Klor-Con M20) 20 meq PO BID [facility] Rosuvastatin Calcium (Crestor) 10 mg PO BEDTIME [facility] Last Admin: 10/08/16 21:09 Dose: 10 mg Senna/Docusate Sodium (Senna Plus) 1 tab PO BEDTIME [facility] Last Admin: 10/08/16 21:09 Dose: 1 tab Sertraline HCl (Zoloft) 50 mg PO DAILY [facility] Last Admin: 10/09/16 09:25 Dose: 50 mg Temazepam (Restoril) 7.5 mg PO BEDTIME PRN PRN Reason: Sleep Timolol Maleate (Timoptic 0.25% Ophth Soln) 0 ml EYEBOTH DAILY [facility] Last Admin: 10/09/16 09:26 Dose: Not Given Warfarin Sodium (Coumadin) 7.5 mg PO SuTuWeThSa@1800 [facility] Last Admin: 10/08/16 21:08 Dose: 7.5 mg Warfarin Sodium (Coumadin) 10 mg PO MoFr@1800 [facility] Discontinued Medications Bumetanide (Bumex) 0.5 mg IVPUSH ONETIME ONE Stop: 10/07/16 13:36 Last Admin: 10/07/16 14:13 Dose: 0.5 mg Sodium Chloride (Normal Saline) 1,000 mls @ 75 mls/hr IV ASDIRECTED [facility] Last Admin: 10/07/16 11:39 Dose: 75 mls/hr Sodium Chloride (Normal Saline) Confirm Administered Dose 500 mls @ as directed .ROUTE .STK-MED ONE Stop: 10/08/16 10:15 Last Admin: 10/08/16 10:58 Dose: 500 ml Potassium Chloride (Klor-Con 10) 20 meq PO BID [facility] Last Admin: 10/09/16 09:25 Dose: 20 meq Sodium Chloride (Saline Flush) 10 ml FLUSH ASDIRECTED PRN PRN Reason: Keep Vein Open Last Admin: 10/07/16 12:06 Dose: 10 ml - Exam Quality Assessment: supplemental oxygen General: alert, oriented, cooperative, no acute distress, other (Obese) HEENT: Pupils equal, Pupils reactive, EOMI, Mucous membr. moist/pink Neck: supple, trachea midline, no JVD, no thyromegaly Lungs: Normal respiratory effort Cardiovascular: Irregular Rhythm Abdomen: bowel sounds present, soft, no tenderness, no distension, other (Obese) (Male) Exam: Deferred Back Exam: Normal Inspection, Decreased Range of Motion Extremities: no clubbing, no cyanosis, no calf tenderness, edema, other (skin discoloration on lower extremity) Peripheral Pulses: 2+: Dorsalis Pedis (L), Dorsalis Pedis (R) Skin: warm, dry, intact Neurological: no new focal deficit Psy/Mental Status: alert, normal affect, normal mood - Problem List Review Problem List Initiated/Reviewed/Updated: Yes - My Orders Last 24 Hours: My Active Orders 10/08/16 20:30 Warfarin [Coumadin] 7.5 mg PO SuTuWeThSa@1800 10/09/16 18:00 Warfarin [Coumadin] 10 mg PO MoFr@1800 10/09/16 21:00 Potassium Chloride [Klor-Con M20] 20 meq PO BID 10/10/16 05:11 BASIC METABOLIC PANEL,BMP [CHEM] AM CBC WITH AUTO DIFF [HEME] AM MAGNESIUM [CHEM] AM 10/11/16 05:11 BASIC METABOLIC PANEL,BMP [CHEM] AM CBC WITH AUTO DIFF [HEME] AM MAGNESIUM [CHEM] AM 10/12/16 05:11 BASIC METABOLIC PANEL,BMP [CHEM] AM CBC WITH AUTO DIFF [HEME] AM MAGNESIUM [CHEM] AM - Plan Plan:: Assessment/Plan: Acute: Anemia - Likely from BM Failure/Blood Dyscrasia - Had a hx/o Pancytopenia - Hem-occult test test in ED negative - S/p 2 units of PRBC transfusions - Hgb is 6.7---> 9.7 after 3 more units of PRBC transfusion - Consulted Dr. Welsh for eval: he felt no need for GI work at this time Subtherapeutic INR - INR 1.74--> 1.59 - No need to give Vit K - Patient is not actively bleeding - Resume warfarin, has no affect on her his platelets Pancytopenia/BM Failure - Had seen Dr. Hoyt before - He did not meet criteria for BM biopsy or even or chemotherapy per family member - He would likely need routine blood transfusion - This is chronic Thrombocytopenia - Platelet now is 22 from 31K, unchanged from yesterday - No active bleed and he is not on chemotherapy - Does not meet criteria for transfusion Chronic: HTN HLD Atrial Fibrillation BPH CKD Stage 4 Dementia Obesity Plan: He looks good and stable Continue current treatment Routine AM Labs Continue PT/OT SW/CM for d/c planning Fall Precautions Refer to Dr. Hoyt on discharge for follow on his BMF/Blood Dyscrasia Code status: DNR/DNI Possible d/c in am
[2016-10-09] MEDS: Cholecalciferol (Vitamin D3) 1,000 Unit Tab PO SCH (13:55)
[2016-10-09] MEDS: Finasteride 5 MG Tab PO SCH (13:55)
[2016-10-09] MEDS ORDERED: Warfarin 5 MG Tab PO SCH (18:00)
[2016-10-09] MEDS: Rosuvastatin 10 MG Tab PO SCH (21:49)
[2016-10-09] MEDS: Potassium Chloride 20 MEQ Tab.ER PO SCH (21:49)
[2016-10-10 07:36] VITALS: BP 138/85
[2016-10-10] MEDS: Cyanocobalamin (Vitamin B12) 1,000 MCG Tab PO SCH (08:38)
[2016-10-10] MEDS: Potassium Chloride 20 MEQ Tab.ER PO SCH (08:38)
[2016-10-10] MEDS: Timolol Maleate 0.25% Ophth Soln 5 ML Bottle EYEBOTH SCH (08:38)
[2016-10-10] MEDS: Sertraline 50 MG Tab PO SCH (08:38)
[2016-10-10] MEDS: Bumetanide 1 MG/4 ML MDV IVPUSH SCH (08:46)
[2016-10-10] MEDS ORDERED: Warfarin 7.5 MG Tab PO SCH (10:18)
--- NOTE | 2016-10-10 11:36 | PCM.DCSUM1 ---
Discharge Summary - Hospital Course Brief History: This is an 86 yo elderly white male with past medical hx/o HTN, HLD, CVA, Hx/o Anemia, Hx/o Pancytopenia, GERD, AVR, Renal Insufficiency/CKD, Dysphagia, Atrial Fibrillation on Warfarin, BPH, Spinal Stenosis, Constipation , OA/DJD, Dry Eyes Syndrome and Depression who comes in from [facility] with complaints of generalized weakness and was found to have low O2 sat in the 70% on RA. No associated abdominal pain, nausea, vomiting or diarrhea. No black tarry or bloody stools. He was admitted for Acute Anemia. 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 SNOMED Code(s): 607991949 ICD Code: D61.9 - APLASTIC ANEMIA, UNSPECIFIED Status: Chronic Qualifiers: Bone marrow failure anemia type: pancytopenia, other Qualified Code(s): D61.818 - Other pancytopenia - Patient Summary/Data Operative Procedure(s) Performed: None Complications: None Consults: Consultations 10/07/16 13:28 Consult to Case Management [CONS] Routine Consult to Physician [CONS] Routine Consult to [employer] [CONS] Routine OT Evaluation and Treatment [CONS] Routine PT Evaluation and Treatment [CONS] Routine Recommended Follow-up Testing/Procedures: Refer to Hematology with Dr. Hoyt at [facility] Course: Patient was primarily admitted for acute symptomatic anemia. He was found to have a Hgb level of 5.1 upon presentation to ED. No reports of any bleeding noted and he was guaiac test negative during this admission. In ED, he was infused initially with 2 units of PRBC to increase his Hgb. But his level marginally improved to 6.7 so additional 3 more units was given. This time, his level increased to 9.7. Dr. Welsh was consulted but he felt patient needed to be further evaluated with for blood dyscrasia. Per family, patient has seen Dr. Hoyt at [place] in the past but no chemotherapy or any other diagnostic procedures done. Patient has done fairly well since admission. His hospital course was uncomplicated. His platelet continued to decline but he never met criteria for transfusion therapy. Patient was not on chemotherapy and or actively bleeding during this hospitalization. His INR was subtherapeutic and heparin or lovenox was never given due to low platelet level. Patient Hgb remained stable after receiving a total of 5 units of PRBC. Patient is now ready for discharge. His vitals have been fairly stable and he looks clinically stable. He will be referred to see Dr. Hoyt for further evaluation. Patient was advised to have a repeat labs done by Sunday. He was further advised to call his family doctor for any questions or concerns right after discharge. - Patient Instructions Diet: Usual Diet as Tolerated, Weight Loss Diet Activity: As Tolerated Driving: Do Not Drive Showering/Bathing: May Shower Notify Provider of: Fever, Increased Pain, Swelling and Redness, Drainage, Nausea and/or Vomiting Other/Special Instructions: - Please take all medications as directed. - Compresssion stockings to wear at night and come off during the day. - You are a high fall risk. - Repeat CBC, INR and BMP in Sunday for Pancytopenia, A-Fib and CKD. - Please call your doctor for any questions or concerns. - Follow up with your family doctor in 1 week - Discharge Plan Home Medications: Home Meds Finasteride [Proscar] 5 mg PO PCLUNCH 05/11/14 [History] Potassium Chloride 20 meq PO BID 05/11/14 [History] Polyethylene Glycol 3350 [MiraLAX] 17 gm PO ASDIRECTED PRN 03/08/15 [History] Sennosides/Docusate Sodium [Senna-Docusate Sodium] 1 each PO BEDTIME 03/08/15 [ History] Sertraline [Zoloft] 50 mg PO DAILY 03/08/15 [History] Cholecalciferol (Vitamin D3) [Vitamin D3] 1,000 units PO PCLUNCH 09/08/15 [ History] Warfarin [Coumadin] 7.5 mg PO SUTUWETHSA 09/08/15 [History] atorvaSTATin [Lipitor] 40 mg PO BEDTIME 09/08/15 [History] Acetaminophen [Tylenol] 325 mg PO Q4H PRN 09/13/16 [History] Cyanocobalamin (Vitamin B-12) [B-12] 1,000 mcg PO DAILY 09/13/16 [History] Furosemide [Lasix] 60 mg PO DAILY 09/13/16 [History] Timolol Maleate [Timoptic 0.25% Ophth Soln] 5 ml EYEBOTH DAILY 09/13/16 [History ] Warfarin [Coumadin] 10 mg PO MOFR 09/13/16 [History] guaiFENesin [Guaifenesin ER] 600 mg PO Q12H PRN 09/13/16 [History] Patient Handouts: Blood Transfusion, [id number], Hypoxemia, Anemia, Nonspecific, Warfarin: What You Need to Know, Platelet Count Test, Atrial Fibrillation, [id number] Referrals: René Cuba MD [Primary Care Provider] - - Discharge Summary/Plan Comment DC Time >30 min.: Yes (45 mins) Discharge Summary/Plan Comment: Discharge to local [place] - General Info Date of Service: 10/10/16 Admission Dx/Problem (Free Text: Admission Diagnosis/Problem Admission Diagnosis/Problem Anemia Subjective Update: Follow Up Functional Status: Reports: pain controlled, tolerating diet. Denies: new symptoms - Review of Systems General: Denies: Fever, Weakness, Fatigue, Malaise, Chills HEENT: Reports: no symptoms Pulmonary: Reports: shortness of breath Cardiovascular: Reports: Edema. Denies: Chest Pain Gastrointestinal: Denies: Abdominal pain, Nausea, Vomiting Genitourinary: Reports: no symptoms Musculoskeletal: Reports: no symptoms Skin: Reports: no symptoms Neurological: Reports: Gait Disturbance. Denies: Weakness Psychiatric: Reports: no symptoms. Denies: depression, anxiety - Patient Data Vitals - Most Recent: Last Vital Signs Temp 36.9 C 10/10/16 07:33 Pulse 84 10/10/16 07:33 Resp 22 H 10/10/16 07:33 BP 138/85 10/10/16 07:33 Pulse Ox 90 L 10/10/16 07:33 Weight - Most Recent: 116.437 kg I&O - Last 24 hours: Intake & Output 10/09/16 10/10/16 10/10/16 22:59 06:59 14:59 Intake Total 800 240 Balance 800 240 Lab Results - Last 24 hrs: Laboratory Results - last 24 hr 10/10/16 10/10/16 10/10/16 Range/Units 04:36 04:36 04:36 WBC 5.74 (4.23-9.07) K/mm3 RBC 3.13 L (4.63-6.08) M/mm3 Hgb 9.8 L (13.7-17.5) gm/L Hct 30.9 L (40.1-51.0) % MCV 98.7 H (79.0-92.2) fl MCH 31.3 (25.7-32.2) pg MCHC 31.7 L (32.2-35.5) g/dl RDW Std Deviation 67.1 H (35.1-43.9) fL Plt Count 19 L* (163-337) K/mm3 MPV 10.7 (9.4-12.3) fl Neut % (Auto) 2.2 L (34.0-67.9) % Lymph % (Auto) 50.0 (21.8-53.1) % [place] % (Auto) 44.8 H (5.3-12.2) % Eos % (Auto) 0.2 L (0.8-7.0) Baso % (Auto) 0.0 L (0.1-1.2) % Neut # (Auto) 0.13 L (1.78-5.38) K/mm3 Lymph # (Auto) 2.87 (1.32-3.57) K/mm3 [place] # (Auto) 2.57 H (0.30-0.82) K/mm3 Eos # (Auto) 0.01 L (0.04-0.54) K/mm3 Baso # (Auto) 0.00 L (0.01-0.08) K/mm3 Manual Slide Review Abnormal smear PT 17.0 H (8.0-13.0) SECONDS INR 1.52 Sodium 147 H (136-145) mEq/L Potassium 4.3 (3.5-5.1) mEq/L Chloride 113 H (98-107) mEq/L Carbon Dioxide 27 (21-32) mEq/L Anion Gap 11.3 (5-15) BUN 36 H (7-18) mg/dL Creatinine 1.7 H (0.7-1.3) mg/dL Est Cr Clr Drug Dosing 31.61 mL/min Estimated GFR (MDRD) 38 (>60) mL/min BUN/Creatinine Ratio 21.2 H (14-18) Glucose 103 (83-115) mg/dL Calcium 8.3 L (8.5-10.1) mg/dL Magnesium 2.1 (1.8-2.4) mg/dl Med Orders - Current: Current Medications Acetaminophen (Tylenol) 325 mg PO Q4H PRN PRN Reason: Pain Hydrocodone Bitart/Acetaminophen ([place] 325-5 Mg) 1 tab PO Q4H PRN PRN Reason: Pain (moderate 4-6) Albuterol/Ipratropium (Duoneb 3.0-0.5 Mg/3 Ml) 3 ml NEB Q4H PRN PRN Reason: Shortness Of Breath/wheezing Bumetanide (Bumex) 0.5 mg IVPUSH BID [facility] Last Admin: 10/10/16 08:46 Dose: 0.5 mg Cholecalciferol (Vitamin D3) 1,000 units PO PCLUNCH [facility] Last Admin: 10/09/16 13:55 Dose: 1,000 units Cyanocobalamin (Vitamin B12) 1,000 mcg PO DAILY [facility] Last Admin: 10/10/16 08:38 Dose: 1,000 mcg Docusate Sodium (Colace) 100 mg PO BID PRN PRN Reason: Constipation Last Admin: 10/08/16 09:24 Dose: 100 mg Finasteride (Proscar) 5 mg PO PCLUNCH [facility] Last Admin: 10/09/16 13:55 Dose: 5 mg Guaifenesin (Mucinex) 600 mg PO Q12H PRN PRN Reason: Cough Last Admin: 10/08/16 09:24 Dose: 600 mg Hydralazine HCl (Apresoline) 20 mg IVPUSH Q4H PRN PRN Reason: Hypertension Promethazine HCl 12.5 mg/ (Sodium Chloride) 50.5 mls @ 100 mls/hr IV Q6H PRN PRN Reason: Nausea/Vomiting Lorazepam (Ativan) 0.25 mg IV Q6H PRN PRN Reason: Anxiety Magnesium Sulfate (Pharmacy To Dose - Magnesium Replacement) 0 dose .XX ASDIRECTED PRN PRN Reason: RX to Dose Metoprolol Tartrate (Lopressor) 5 mg IVPUSH Q4H PRN PRN Reason: Tachycardia Ondansetron HCl (Zofran) 4 mg IV Q6H PRN PRN Reason: Nausea/Vomiting Polyethylene Glycol (Miralax) 17 gm PO DAILY PRN PRN Reason: Constipation Last Admin: 10/07/16 17:58 Dose: 17 gm Potassium Chloride (Pharmacy To Dose - Potassium Replacement) 0 dose .XX ASDIRECTED PRN PRN Reason: RX to Dose Potassium Chloride (Klor-Con M20) 20 meq PO BID [facility] Last Admin: 10/10/16 08:38 Dose: 20 meq Rosuvastatin Calcium (Crestor) 10 mg PO BEDTIME [facility] Last Admin: 10/09/16 21:49 Dose: 10 mg Senna/Docusate Sodium (Senna Plus) 1 tab PO BEDTIME [facility] Last Admin: 10/09/16 21:50 Dose: Not Given Sertraline HCl (Zoloft) 50 mg PO DAILY [facility] Last Admin: 10/10/16 08:38 Dose: 50 mg Temazepam (Restoril) 7.5 mg PO BEDTIME PRN PRN Reason: Sleep Timolol Maleate (Timoptic 0.25% Ophth Soln) 0 ml EYEBOTH DAILY [facility] Last Admin: 10/10/16 08:38 Dose: 1 drop Warfarin Sodium (Coumadin) 7.5 mg PO SuTuWeThSa@1800 [facility] Warfarin Sodium (Coumadin) 10 mg PO MoFr@1800 [facility] Discontinued Medications Bumetanide (Bumex) 0.5 mg IVPUSH ONETIME ONE Stop: 10/07/16 13:36 Last Admin: 10/07/16 14:13 Dose: 0.5 mg Sodium Chloride (Normal Saline) 1,000 mls @ 75 mls/hr IV ASDIRECTED [facility] Last Admin: 10/07/16 11:39 Dose: 75 mls/hr Sodium Chloride (Normal Saline) Confirm Administered Dose 500 mls @ as directed .ROUTE .STK-MED ONE Stop: 10/08/16 10:15 Last Admin: 10/08/16 10:58 Dose: 500 ml Potassium Chloride (Klor-Con 10) 20 meq PO BID [facility] Last Admin: 10/09/16 09:25 Dose: 20 meq Sodium Chloride (Saline Flush) 10 ml FLUSH ASDIRECTED PRN PRN Reason: Keep Vein Open Last Admin: 10/07/16 12:06 Dose: 10 ml Warfarin Sodium (Coumadin) 7.5 mg PO SuTuWeThSa@1800 [facility] Last Admin: 10/08/16 21:08 Dose: 7.5 mg Warfarin Sodium (Coumadin) 10 mg PO MoFr@1800 [facility] Last Admin: 10/09/16 17:56 Dose: 10 mg - Exam General: Reports: alert, cooperative, no acute distress, other (Obese) HEENT: Reports: Pupils equal, Pupils reactive, EOMI, Mucous membr. moist/pink Neck: Reports: supple, trachea midline, no JVD, other (short and thick) Lungs: Reports: Normal respiratory effort, Decreased breath sounds Cardiovascular: Reports: Regular Rate, Regular Rhythm, Irregular Rhythm Abdomen: Reports: bowel sounds present, soft, no tenderness, no distension, other (Obese) (Male) Exam: Deferred Rectal (Males) Exam: Deferred Back Exam: Reports: Normal Inspection, Decreased Range of Motion Extremities: Reports: normal pulses, no tenderness/swelling, no cyanosis, no calf tenderness, edema Skin: Reports: warm, dry, intact Neurological: Reports: no new focal deficit Psy/Mental Status: Reports: alert, normal affect, normal mood *Q Meaningful Use (DIS) - VTE *Q VTE Criteria *Q: - Stroke *Q Stroke Criteria *Q: - AMI *Q AMI Criteria *Q:
[2016-10-13] MEDS ORDERED: Warfarin 10 MG Tab PO SCH (18:00)
== END 2016-10-10 12:57 | DRG 809 ==
LOC: JD.ED 09:39 → JD.MS 12:09
PROVIDERS: ADMIT Internal Medicine; ATTEND Internal Medicine
PROC: 30233N1 Transfusion of Nonautologous Red Blood Cells into Peripheral Vein, Percutaneous Approach (ICD-10-PCS; principal; 2016-10-07)
DX: D64.9 Anemia, unspecified (principal); R09.02 Hypoxemia; D61.9 Aplastic anemia, unspecified; N18.9 Chronic kidney disease, unspecified; N18.4 Chronic kidney disease, stage 4 (severe); R79.1 Abnormal coagulation profile; D61.818 Other pancytopenia; Z68.31 Body mass index [BMI] 31.0-31.9, adult; D69.6 Thrombocytopenia, unspecified; I48.91 Unspecified atrial fibrillation; I12.9 Hypertensive chronic kidney disease with stage 1 through stage 4 chronic kidney disease, or unspecified chronic kidney disease; Z87.891 Personal history of nicotine dependence; E78.5 Hyperlipidemia, unspecified; N40.1 Benign prostatic hyperplasia with lower urinary tract symptoms; R35.0 Frequency of micturition; F03.90 Unspecified dementia, unspecified severity, without behavioral disturbance, psychotic disturbance, mood disturbance, and anxiety; E66.9 Obesity, unspecified; Z68.30 Body mass index [BMI] 30.0-30.9, adult; K21.9 Gastro-esophageal reflux disease without esophagitis; K59.00 Constipation, unspecified; R13.10 Dysphagia, unspecified; Z86.73 Personal history of transient ischemic attack (TIA), and cerebral infarction without residual deficits; M48.00 Spinal stenosis, site unspecified; M19.90 Unspecified osteoarthritis, unspecified site; H04.129 Dry eye syndrome of unspecified lacrimal gland; F32.9 Major depressive disorder, single episode, unspecified; H40.9 Unspecified glaucoma; Z96.641 Presence of right artificial hip joint; Z66 Do not resuscitate; Z79.01 Long term (current) use of anticoagulants; Z79.899 Other long term (current) drug therapy; E78.00 Pure hypercholesterolemia, unspecified; I35.1 Nonrheumatic aortic (valve) insufficiency
CPT/HCPCS: 36415; 36430; 71010; 80053; 82272; 83880; 84484; 85025; 85610; 86850; 86900; 86901; 86922 ×2; 87040 ×2; 93005; 99285; J7040; J7050; P9016; 80048; 83735; 84153; 87641; 97110-GP; 97161-GP; 97165-GO; 97530-GO; 97530-GP; 99284; A9270-GY